=== PATIENT | male | born 2000 | race Caucasian/White ===

== ENCOUNTER 2024-12-31 00:43 | Emergency (ER) | payer MEDICAID ==
[~2024-12-31] VITALS: Ht 175.3 cm; Wt 82.0 kg
[2024-12-31 00:46] VITALS: O2SAT 98
[2024-12-31] MEDS ORDERED: ONDA4TAB50 MT (04:07)
[2024-12-31 04:26] VITALS: BP 115/84; PULSE 99; RESP 14; TEMP 36.8; O2SAT 98
== END 2024-12-31 04:31 | disposition home or self-care (01) ==
LOC: ER 00:43 → EDBD 00:43 → ER 04:31
DX: F10.129 Alcohol abuse with intoxication, unspecified (principal); F12.90 Cannabis use, unspecified, uncomplicated; Y90.8 Blood alcohol level of 240 mg/100 ml or more
CPT/HCPCS: 36415; 80320; 99283; G0480